=== PATIENT | female | born 1965 | race Caucasian/White ===

== ENCOUNTER 2020-12-11 18:46 | Emergency (ER) | payer OTHER ==
[2020-12-15] MEDS ORDERED: BUPRENORPHIN-N1 EACH SL (06:52)
[2020-12-15] MEDS ORDERED: LEVOTHYROXINE150 MC1 PO (07:00)
[2020-12-15] MEDS ORDERED: LAMICTAL25 M1 PO (07:00)
[2020-12-15] MEDS ORDERED: IBU800 MG PO (07:01)
[2020-12-15] MEDS ORDERED: METFORMIN ER G500 MG PO (07:01)
[2020-12-15] MEDS ORDERED: LASIX20 MG PO (07:01)
== END 2020-12-11 22:23 | disposition home or self-care (01) ==
LOC: ER1 18:46
DX: S52.502A Unspecified fracture of the lower end of left radius, initial encounter for closed fracture (principal); E11.9 Type 2 diabetes mellitus without complications; F17.210 Nicotine dependence, cigarettes, uncomplicated; Z85.850 Personal history of malignant neoplasm of thyroid; W10.9XXA Fall (on) (from) unspecified stairs and steps, initial encounter; Y92.009 Unspecified place in unspecified non-institutional (private) residence as the place of occurrence of the external cause
CPT/HCPCS: 29125; 73090; 73110; 73130; 96372; 99283; J1885

== ENCOUNTER → 2020-12-16 | Day surgery (SDC) | payer OTHER ==
[~2020-12-16] VITALS: Ht 170.2 cm; Wt 150.6 kg
[~2020-12-16] MED LIST: BUPRENORPHIN-N1 EACH SL; IBU800 MG PO; LAMICTAL25 M1 PO; LASIX20 MG PO; LEVOTHYROXINE150 MC1 PO; METFORMIN ER G500 MG PO
[2020-12-16 12:32] LABS: HEMOGLOBIN 15.4 gm/dl (12.3-15.3); RED BLOOD COUNT 4.9 M/UL (4.00-5.10); WHITE BLOOD COUNT 11.8 K/UL (4.5-11.0)
[2020-12-16 13:02] LABS: BUN/CREATININE RATIO 15 (0-10)
== END | disposition home or self-care (01) ==
LOC: OR 12-15 05:58
PROVIDERS: Orthopaedic Surgery
PROC: 3E0T3BZ Introduction of Anesthetic Agent into Peripheral Nerves and Plexi, Percutaneous Approach (ICD-10-PCS; 2020-12-16)
PROC: 0PSJ04Z Reposition Left Radius with Internal Fixation Device, Open Approach (ICD-10-PCS; principal; 2020-12-16 13:00)
DX: S52.572A Other intraarticular fracture of lower end of left radius, initial encounter for closed fracture (principal); G89.18 Other acute postprocedural pain; E89.0 Postprocedural hypothyroidism; I10 Essential (primary) hypertension; J44.9 Chronic obstructive pulmonary disease, unspecified; E11.9 Type 2 diabetes mellitus without complications; F17.210 Nicotine dependence, cigarettes, uncomplicated; Z79.84 Long term (current) use of oral hypoglycemic drugs; Z79.899 Other long term (current) drug therapy; Z79.1 Long term (current) use of non-steroidal anti-inflammatories (NSAID); Z20.822 Contact with and (suspected) exposure to COVID-19; W10.9XXA Fall (on) (from) unspecified stairs and steps, initial encounter
CPT/HCPCS: 36415; 73100; 76000; 80048; 82962; 85025; C1713; J0592; J0690; J1100; J2001; J2250; J2704; J2795; J3010; J7030; J7120